=== PATIENT | female | born 1985 | race Caucasian/White ===

== ENCOUNTER → 2023-09-30 16:16 | Outpatient (BNVA) | payer BC, MEDICAID, SELFPAY | PROVIDERS: PCP Nurse Practitioner; Visit Provider Nurse Practitioner | DX: R05.9 Cough, unspecified (principal); J20.9 Acute bronchitis, unspecified | CPT/HCPCS: 71046 ==

== ENCOUNTER → 2023-10-14 15:38 | Outpatient (BNVA) | payer BC, MEDICAID, SELFPAY | PROVIDERS: PCP Nurse Practitioner; Visit Provider Specialist | DX: G56.03 Carpal tunnel syndrome, bilateral upper limbs (principal) | CPT/HCPCS: 36415; 73110; 80053; 81003; 85025 ==

== ENCOUNTER 2023-10-26 12:26 | Outpatient (CLI) | payer BC, MEDICAID, SELFPAY ==
--- NOTE | 2023-10-26 13:00 | MR_ITS ---
WS: [id number] MRI BRAIN WITH AND WITHOUT CONTRAST HISTORY: R51.9 - Headache, unspecified COMPARISON: None available. TECHNIQUE: Multiplanar imaging performed through the brain with MultiHance. No acute infarcts are seen. Elliott-white matter differentiation is well preserved. No susceptibility artifacts or prior lacunar infarcts. Ventricles and extra-axial spaces are normal. Clivus and pituitary gland are normal. Visualized posterior fossa and brainstem are also normal. Postcontrast images are negative for masses or vascular malformations. Dural venous sinuses are normal. Paranasal sinuses: Well aerated with no significant disease. Mastoid air cells: Normal. Calvarium and scalp: Normal. MR/MR head wo/w con [id number] IMPRESSION: 1. Normal MRI brain with contrast.
--- NOTE | 2023-10-26 13:45 | MR_ITS ---
WS: [id number] MRA ANGIOGRAPHY [place] HISTORY: R51.9 - Headache, unspecified COMPARISON: None available. TECHNIQUE: 3-D MR angiography is performed of the [place]. All images are reviewed including source images. Distal vertebral and basilar arteries are intact with no significant stenosis or plaque. Posterior ce rebral arteries are normal course and caliber. Posterior communicating arteries are both patent. Intracranial portion of the internal carotid arteries are normal course and caliber. No significant a therosclerosis, stenosis or aneurysm identified. Middle and anterior cerebral arteries are both paten t with no significant disease. Anterior communicating artery is also normal. MR/MR angio head wo con [id number] IMPRESSION: Normal MRA [place].
[2023-10-26] MEDS: gadobenate dimeglumine 20 mL vial IV (13:50)
== END 2023-10-26 12:27 | disposition home or self-care (01) ==
LOC: RAD 12:26
PROVIDERS: PCP Nurse Practitioner; Visit Provider Psychiatry & Neurology Neurology
DX: R51.9 Headache, unspecified (principal)
CPT/HCPCS: 70544; 70553; A9577

== ENCOUNTER → 2023-12-30 10:10 | Outpatient (BNVA) | payer BC, MEDICAID, SELFPAY | PROVIDERS: PCP Nurse Practitioner; Visit Provider Family Medicine | DX: Z01.818 Encounter for other preprocedural examination (principal) | CPT/HCPCS: 80053; 85025 ==

== ENCOUNTER → 2024-03-21 15:13 | Outpatient (BNVA) | payer BC, MEDICAID, SELFPAY | PROVIDERS: PCP Nurse Practitioner; Visit Provider Psychiatry & Neurology Neurology | DX: G43.011 Migraine without aura, intractable, with status migrainosus (principal) | CPT/HCPCS: 36415; 80201; 82306; 82607; 82746; 83090; 83735; 83921 ==

== ENCOUNTER → 2024-10-03 16:00 | Outpatient (BNVA) | payer BC, MEDICAID, SELFPAY | PROVIDERS: PCP Nurse Practitioner; Visit Provider Psychiatry & Neurology Neurology | DX: E55.9 Vitamin D deficiency, unspecified (principal) | CPT/HCPCS: 36415; 82306 ==

== ENCOUNTER 2024-12-06 10:35 | Outpatient (CLI) | payer BC, MEDICAID, SELFPAY ==
--- NOTE | 2024-12-06 11:00 | CT_ITS ---
WS: [id number] CT chest w con* [id number] HISTORY: J40 - Bronchitis, not specified as acute or chronic TECHNIQUE: Axial imaging performed through the thorax. Coronal and sagittal reformats are submitted. All CT scans at [facility] use at least one of these dose optimization techniques: automated exposure control; mA and/or kV adjustment per patient size (includes targeted exams where dose is matched to clinical indication); or iterative reconstruction. CONTRAST: Omnipaque 350; 100 mL IV. DLP: 590.00 mGy.cm COMPARISON: None available. Lungs and central airway: Lungs are well aerated. No mass, nodule or pneumonia. There is a small curvilinear scar in the anterior RIGHT middle lobe. No bronchiectasis or reticular nodular or tree-in-bud airspace disease. No bronchial wall thickening. Pleura: Normal. No pleural effusion. Heart and pericardium: Normal size heart with no pericardial effusion. Mediastinum and linda: No mediastinum or hilar adenopathy. Vessels: Normal size aortic and pulmonary artery. No coronary artery calcifications. Chest wall and lower neck: No soft tissue masses. Upper abdomen: Normal. Osseous structures: No destructive process. CT/CT chest w con* [id number] IMPRESSION: 1. No lung abnormality identified radiographically. No pneumonia or nodule. 2. No bronchiectasis or bronchial wall thickening. 3. Normal size heart.
[2024-12-06] MEDS: iohexol 350 mg/mL 500 mL Btl (per mL) IV (11:18)
== END 2024-12-06 10:36 | disposition home or self-care (01) ==
LOC: RAD 10:40
PROVIDERS: PCP Nurse Practitioner; Visit Provider Nurse Practitioner
DX: J40 Bronchitis, not specified as acute or chronic (principal); J98.4 Other disorders of lung
CPT/HCPCS: 71260

== ENCOUNTER → 2024-12-12 08:55 | Outpatient (BNVA) | payer BC, MEDICAID, SELFPAY | PROVIDERS: PCP Nurse Practitioner; Visit Provider Specialist | DX: G56.02 Carpal tunnel syndrome, left upper limb (principal); Z01.818 Encounter for other preprocedural examination | CPT/HCPCS: 36415; 73110; 80053; 81001; 85025 ==

== ENCOUNTER 2024-12-14 14:06 | Outpatient (CLI) | payer BC, MEDICAID, SELFPAY | END 2024-12-14 14:07 | disposition home or self-care (01) | LOC: RT 14:08 | PROVIDERS: PCP Nurse Practitioner; Visit Provider Nurse Practitioner | DX: J40 Bronchitis, not specified as acute or chronic (principal) | CPT/HCPCS: 94010; 94726; 94729 ==

== ENCOUNTER 2025-01-03 07:50 | Day surgery (SDC) | payer BC, MEDICAID, SELFPAY ==
[2025-01-03] VITALS (7 sets, daily range): BP systolic 117–129; BP diastolic 73–87; PULSE 71–81; RESP 16–18; TEMP 36.4–36.6; O2SAT 97–100; BMI 46.9
[2025-01-03 08:26] LABS: OR HCG Qualitative Urine Negative (Negative)
[2025-01-03] MEDS: acetaminophen 1,000 MG/100 ML PIGGYBACK 400 MG IV (08:32)
--- NOTE | 2025-01-03 08:51 | P.HPUD_ITS ---
Surgery/Procedure H&P Update DATE OF PROCEDURE: January 03, 2025 DATE H&P PERFORMED: 12/12/24 H&P UPDATE INFORMATION: I have reviewed H&P completed within last 30 days, I have examined patient prior to procedure, No changes to prior documentation, H&P is in [facility] EMR on date indicated and Risks and benefits of the procedure reviewed PLANNED PROCEDURE: Operation Date: 01/03/25 10:55 Proposed Procedures p LEFT Carpal Tunnel Release(Left) - Ni Munguia MD Related Problem List Diagnoses 1. Carpal tunnel syndrome, left:
--- NOTE | 2025-01-03 09:35 | ANES.PREANE2 ---
Pre-Anesthetic Assessment Height/Weight: Height 1.6 m Weight 120.202 kg Temp Pulse Resp BP Pulse Ox O2 Del Method 97.9 F 80 18 129/85 98 Room Air 01/03/25 08:11 01/03/25 08:11 01/03/25 08:11 01/03/25 08:11 01/03/25 08:11 01/03/25 08:11 Operation Date: 01/03/25 10:55 Proposed Procedures p LEFT Carpal Tunnel Release(Left) - Ni Munguia MD Familial anesthetic complications: Patient today is denying any knowledge of a family history of malignant hyperthermia is unsure how that ended up in a previous note Was Beta Shala taken within 24 hours: N/A Was Clonidine taken within 24 hours: N/A Last intake: Intake Last Liquid Date 01/02/25 Last Liquid Time 21:00 Last Solid Date 01/02/25 Last Solid Time 21:00 Social No alcohol and No tobacco Exam alert, oriented x 3, clear to auscultation bilaterally and regular rate & rhythm Airway Mallampati: Class I Dentition: other (missing) Pulmonary Asthma Metabolic Morbid Obesity and Thyroid Disease [facility] [place]atic arthritis Anesthetic Plan ASA status: 2 Anesthesia: General Other: TIVA for MH precaution Risk of > 500 ml blood loss (7ml/kg in children): No Medications/Allergies Home Medications ?Medication ?Instructions ?Recorded ?Confirmed ?Last Taken ?Type mecobalamin (vitamin B12) 5,000 5,000 mcg PO 1XD 04/21/23 01/03/25 12/27/24 History mcg disintegrating tablet loratadine 10 mg tablet (Claritin) 10 mg PO DAILY 05/15/23 01/03/25 01/02/25 History magnesium 250 mg tablet 500 mg PO DAILY 05/15/23 01/03/25 01/02/25 History albuterol sulfate 90 mcg/actuation 90 mcg inhalation Q4-5H PRN 12/30/23 01/03/25 Unknown History aerosol inhaler (Ventolin HFA) Shortness Of Breath polysaccharide iron complex 150 mg 150 mg PO DAILY 12/30/23 01/03/25 12/21/24 History iron capsule tofacitinib 5 mg tablet (Xeljanz) 5 mg PO 1XD 03/21/24 01/02/25 01/02/25 History celecoxib 200 mg capsule See Rx Instructions .Route 05/11/24 01/03/25 12/26/24 Rx .COMPLEX #60 caps Trokendi XR 50 mg capsule, See Rx Instructions .Route 10/03/24 01/03/25 01/02/25 Rx extended release (topiramate) .COMPLEX #120 caps rimegepant 75 mg disintegrating 75 mg PO .COMPLEX #16 tabs 10/03/24 01/03/25 12/19/24 Rx tablet (Nurtec ODT) levothyroxine 50 mcg tablet See Rx Instructions .Route 11/15/24 01/03/25 01/02/25 Rx .COMPLEX #30 tabs prazosin 1 mg capsule See Rx Instructions .Route 11/15/24 01/03/25 01/01/25 Rx .COMPLEX #30 caps buspirone 5 mg tablet 5 mg PO TID #270 tabs 12/06/24 01/02/25 01/02/25 Rx duloxetine 60 mg capsule,delayed 60 mg PO DAILY #90 caps 12/06/24 01/03/25 01/02/25 Rx release (Cymbalta) omeprazole 40 mg capsule,delayed 80 mg (2 x 40 mg) PO DAILY #180 12/06/24 01/03/25 01/02/25 Rx release caps Allergies Allergy/AdvReac Type Severity Reaction Status Date / Time nickel Allergy Intermediate ALGY-Rash Verified 01/03/25 08:01 amoxicillin Allergy itching Verified 01/03/25 08:01 Current Medications Generic Name Dose Route Start Last Admin Trade Name Freq PRN Reason Stop Dose Admin Sodium Chloride 1,000 mls @ 30 mls/hr 01/03/25 08:00 01/03/25 08:32 Sodium Chloride 0.9% IV 01/04/25 07:59 30 mls/hr .Q24H REY Administration PFSH Anesthesia Family History (Updated 12/27/24 @ 14:08 by Jennifer Anderson CMA) Mother Cancer cervical Uterine cancer Diabetes Grandfather Cancer maternal - brain Stroke Grandmother Stroke paternal Thyroid disease maternal Hypertension Father Hyperlipidemia Hypertension Other Malignant hyperthermia Denies family history of Colon cancer Ovarian cancer Heart disease Chronic kidney disease (CKD) Breast cancer Social History Smoking and tobacco/nicotine status: never used tobacco/nicotine Female Reproductive History Date of last menstrual period: 12/26/24 Para: 4 Spontaneous abortions: No
[2025-01-03] MEDS: ceFAZolin 1,000 mg SDV 1000 MG IVP (11:11)
[2025-01-03] MEDS: ceFAZolin 2,000 mg SDV 2000 MG IVP (11:27)
[2025-01-03] MEDS: BUPivacaine 0.5% INJ 30 mL INJECTION (11:29)
--- NOTE | 2025-01-03 12:31 | PM.OP ---
Operative Report Date of procedure: January 03, 2025 Pre-op diagnosis: Left carpal tunnel syndrome Post-op diagnosis: Left carpal tunnel syndrome Post-op findings: Significant compression across the carpal canal on the median nerve Procedure done: Left carpal tunnel release Implants: None Specimens removed/disposition: None Pathology: None Surgeon: Ni Munguia MD [employer]: None Anesthesia: MAC (With local, ASA 2) Estimated blood loss (mL): 2 Tourniquet time (min): 19 (At 250 mmHg) IV fluids (mL): 800 Urine output (mL): 0 (No Olson) Complications: None Findings: Severe compression across carpal canal with discoloration Disposition: PACU (Then return to same-day surgery for discharge to home) Brief History: This 39-year-old woman presented to the clinic complaining of numbness and tingling in the left hand. Nerve conduction studies done in 2022 had demonstrated bilateral carpal tunnel syndrome with significant slowing of the median nerve latency. This was worse on the left than right. Based on this in the patient's symptoms, decision was made to proceed with operative intervention. Risks and complications were discussed with the patient. Consents were signed and questions were answered. Procedure: The patient was brought to the operating theater. The patient had a local anesthesia with MAC, ASA 2. The tourniquet was elevated to 250 mmHg for a total tourniquet time of 19 minutes. The patient was also given Ancef 3 g preoperatively. The arm was then prepped and draped with DuraPrep in usual fashion with the arm draped free. A surgical pause was performed. At the time of the surgical pause, we confirmed the site and side of surgery. We also confirmed the patient's identity, appropriate and timely administration of preoperative antibiotics and preoperative surgical markings. An incision was then made along the thenar crease. The incision crossed the wrist joint in a curvilinear fashion. Dissection continued through skin and soft tissues using a scalpel. The palmaris longus was identified along with the transverse carpal ligament. Each of these was released carefully to avoid injury to the median nerve. We were able to dissect gently into the carpal canal which was noted to be quite tight with significant compression across the median nerve. The nerve was visualized and was an hourglass shape. The canal was subsequently palpated to assure there was no bony encroachment upon the canal. The canal was then palpated distally and proximally to assure that my small finger passed easily without impingement. Finding this to be so, attention was directed to closure. The wound was irrigated with ropivacaine plain. It was then closed with 3-0 nylon in an interrupted mattress fashion. Sterile dressing was then placed consisting of Dermabond, OpSite, fluffed fluffs, sterile soft roll, and an Pantera wrap. The tourniquet was released after 19 minutes. There were no complications. There were no specimens. The procedure was well tolerated. Plan is the patient will be discharged home. Related Problem List Diagnoses 1. Carpal tunnel syndrome, left:
--- NOTE | 2025-01-03 13:10 | ANE.PACU2 ---
Inpatient post-anesthesia follow up: Airway intact: Yes Vital signs: Temperature 97.5 F Pulse Rate 76 Respiratory Rate 17 Blood Pressure 118/78 Pulse Oximetry 98 Oxygen Delivery Me thod Room Air Oxygen Flow Rate 8 Fraction of Inspir ed Oxygen Hydration adequate: Yes Nausea and vomiting: No Pain level: 1 Mental status: Baseline
== END 2025-01-03 13:14 | disposition home or self-care (01) ==
PROVIDERS: Anesthesiology; PCP Nurse Practitioner; Visit Provider Specialist
PROC: (CPT 64721; principal; 2025-01-03 10:55)
DX: G56.02 Carpal tunnel syndrome, left upper limb (principal); J45.909 Unspecified asthma, uncomplicated; E66.01 Morbid (severe) obesity due to excess calories; Z68.42 Body mass index [BMI] 45.0-49.9, adult; E07.9 Disorder of thyroid, unspecified; L40.50 Arthropathic psoriasis, unspecified; K21.9 Gastro-esophageal reflux disease without esophagitis
CPT/HCPCS: 64721; 81025; J0131; J0690; J1885; J2250; J2704; J3010; J3490; J7030; J9999